=== PATIENT | male | born 1990 | race Caucasian/White ===

== ENCOUNTER 2017-11-07 08:45 | Emergency (ER) | payer OTHER ==
[~2017-11-07] VITALS: Ht 177.8 cm; Wt 61.2 kg
[2017-11-07 08:54] VITALS: BP 112/90
[2017-11-07] MEDS ORDERED: POLYMYXIN B/TMP10 ML OPHTHALMIC (09:22)
== END 2017-11-07 09:26 | disposition home or self-care (01) ==
LOC: M.ERS 08:45
DX: S05.01XA Injury of conjunctiva and corneal abrasion without foreign body, right eye, initial encounter (principal); X58.XXXA Exposure to other specified factors, initial encounter; Y93.89 Activity, other specified; Y92.89 Other specified places as the place of occurrence of the external cause; Y99.0 Civilian activity done for income or pay